=== PATIENT | male | born 1955 | race Caucasian/White ===

== ENCOUNTER → 2018-03-30 | Outpatient (CLI) | payer OTHER ==
[~2018-03-30] MED LIST: ALPH200C PO; ASCO10004 PO; FINA5TAB4 PO; GINK60CA2 PO; MESA0.372 PO; MULT1TAB60 PO; TAMS-11 PO; VIT1TABL32 PO; [UNRECOGNIZED DRUG - CODE] PO
== END | disposition home or self-care (01) ==
LOC: STAR 07:54
PROVIDERS: ATTEND Urology
DX: Z01.818 Encounter for other preprocedural examination (principal); R33.9 Retention of urine, unspecified
CPT/HCPCS: 93005